=== PATIENT | female | born 1995 | race Caucasian/White ===

== ENCOUNTER 2019-07-17 10:07 | Emergency (ER) | payer BC ==
[~2019-07-17] VITALS: Ht 157.5 cm; Wt 50.0 kg
[2019-07-17 10:11] VITALS: TEMP 97.6
[2019-07-17] MEDS ORDERED: ALLEGRA-D 24HR1 T24 PO (10:18)
[2019-07-17] MEDS ORDERED: MULTI VITAMINS1 TAB PO (10:19)
[2019-07-17 11:05] LABS: BASO % 0.6 % (0.0-2.0); EOS # 0.1 (0.0-0.7); EOS % 2.1 % (0-4.0); GRAN # 3.1 (1.4-6.5); GRAN % 58.8 % (42.2-75.2); HEMATOCRIT 38.7 % (37.0-47.0); HEMOGLOBIN 13.2 g/dl (12.5-16.0); LYMPH # 1.6 (1.2-3.4); LYMPH % 30.7 % (20.0-51.0); MEAN CELL VOLUME 89 fl (80.0-100.0); MEAN CORPUSCULAR HEMOGLOBIN 30 pg (27.0-31.0); MEAN CORPUSCULAR HGB CONC 34 g/dl (33.0-37.0); MEAN PLATELET VOLUME 11.5 fl (7.4-10.4); MONO # 0.4 (0.1-0.6); MONO % 7.6 % (1.7-9.3); PLATELET COUNT 172 K/mm3 (130-400); RED BLOOD COUNT 4.37 M/mm3 (4.10-5.30); REDCELL DISTRIBUTION WIDTH-CV 11.9 % (11.5-14.5)
[2019-07-17 11:16] LABS: ALBUMIN 4.5 gm/dL (3.5-5.0); BILIRUBIN,TOTAL 0.4 mg/dL (0.0-1.0); CALCIUM 9.7 mg/dL (8.4-10.2); CREATININE, serum 0.61 (0.52-1.25); POTASSIUM 3.7 mmol/L (3.4-5.0); TOTAL PROTEIN 7.3 gm/dL (6.4-8.2)
[2019-07-17 11:17] LABS: COLLECTION METHOD CLEAN CATCH
[2019-07-17 11:26] LABS: MUCOUS Present /lpf; PH 9 (5-8); SQUAMOUS EPITHELIAL 0-2 /hpf; URINE APPEARANCE Hazy; URINE BACTERIA Rare /hpf; URINE BILIRUBIN Negative (NEGATIVE); URINE BLOOD Negative (NEGATIVE); URINE COLOR Yellow; URINE GLUCOSE Negative (NEGATIVE); URINE KETONE Trace (NEGATIVE); URINE LEUKOCYTE ESTERASE Negative (NEGATIVE); URINE NITRATE Negative (NEGATIVE); URINE PROTEIN(semi-quant) Negative (NEGATIVE); URINE RBC 0-2 /hpf; URINE UROBILINOGEN Negative (NEGATIVE)
[2019-07-17 11:58] VITALS: BP 144/77; PULSE 61
== END 2019-07-17 12:01 | disposition home or self-care (01) ==
LOC: COL.ER 10:07
PROVIDERS: Family Medicine
DX: R06.4 Hyperventilation (principal); R19.7 Diarrhea, unspecified; F41.0 Panic disorder [episodic paroxysmal anxiety]
CPT/HCPCS: J7030

== ENCOUNTER 2019-09-08 09:41 | Outpatient (CLI) | payer BC ==
[~2019-09-08] VITALS: Ht 157.6 cm; Wt 49.7 kg
[~2019-09-08 09:41] MED LIST: ALLEGRA-D 24HR1 T24 PO; MULTI VITAMINS1 TAB PO
[2019-09-08 10:31] VITALS: BP 117/81; PULSE 69; TEMP 97.9
[2019-09-08 11:58] VITALS: BP 114/97; PULSE 79; TEMP 97.9
--- NOTE | 2019-09-08 11:58 | NUR ---
Back from [employer] [facility]. Ambulated to bed without dizziness. Mother bedside. VSS
[2019-09-08 12:12] VITALS: BP 114/74; PULSE 72; TEMP 97.9
[2019-09-08 12:22] VITALS: BP 119/72; PULSE 62; TEMP 97.9
[2019-09-08 12:28] VITALS: BP 116/72; PULSE 74; TEMP 97.9
--- NOTE | 2019-09-08 12:28 | NUR ---
INT discontinued intact. Discharge instructions given. Ambulated to private cr
== END 2019-09-08 12:29 | disposition home or self-care (01) ==
LOC: COL.CAR 09:41
DX: R00.2 Palpitations (principal); R06.02 Shortness of breath; J45.990 Exercise induced bronchospasm; Z88.8 Allergy status to other drugs, medicaments and biological substances